=== PATIENT | female | born 1935 | race Caucasian/White ===

== ENCOUNTER 2021-05-22 05:50 | Day surgery (SDC) | payer MEDICARE, OTHER ==
[2021-05-20 11:26] LABS: BASOPHILS 0.5 % (0-2); HEMOGLOBIN 12.7 g/dL (12-16); LYMPHOCYTES 14.7 % (15-50); MCHC 33.4 g/dL (31.0-37.0); MCV 92.8 fL (80.0-100.0); MEAN PLATELET VOLUME 7.1 fL (7.4-10.4); MONOCYTES 9.2 % (2-11); NEUTROPHILS 71.6 % (40-80); PLATELET COUNT 413 10x3/uL (130-400); RBC 4.09 10x6/uL (4.00-5.40); RDW 14.5 % (11.5-14.5); WBC 7.6 10x3/uL (4.8-10.8)
[2021-05-20 11:30] LABS: ANION GAP 11.4 mmol/L (8-16); CALCIUM 9.1 mg/dL (8.5-10.1); CARBON DIOXIDE 31.4 mmol/L (21.0-32.0); CREATININE - SERUM 0.9 mg/dL (0.6-1.3); POTASSIUM - SERUM 3.8 mmol/L (3.5-5.1)
[2021-05-20 11:49] LABS: APTT 31.5 SECONDS (22.8-39.4); INR 1.14 (0.85-1.17); PROTIME 13.5 SECONDS (11.6-15.0)
[~2021-05-22] VITALS: Ht 165.1 cm; Wt 92.5 kg
[~2021-05-22 05:50] MED LIST: BACTRIM 400-801 TAB PO; BAYER CHEWABLE81 MG PO; BETAPACE 80 MG80 MG PO; CETIRIZINE HCL5 M1 PO; ELIQUIS5 MG PO; FUROSEMIDE20 MG PO; HYDROCODON-ACE1 EA10 PO; KEFLEX500 MG PO; LIPITOR10 MG PO; LOVENOX30 MG/0.3 SC; POTASSIUM CHLOR8 ME1 PO; STOOL SOFTENER240 MG PO; VENTOLIN HFA [SP8 GM INH; VITAMIN D31250 MCG PO
[2021-05-22 06:36] VITALS: BP 103/52; Ht 165.1 cm; Wt 92.5 kg
[2021-05-22] MEDS ORDERED: ACETAMINOPHEN500 M1 PO (06:43)
--- NOTE | 2021-05-22 10:15 | NUR ---
UNEVENTFUL RECOVERY. DISCHARGE INSTRUCTIONS GIVEN AND PT VERBALIZED AN UNDERSTANDING. IV D/C'D WITH CANNULA INTACT, PRESSURE HELD AND DRSG PLACED.
--- NOTE | 2021-05-23 08:19 | OP ---
PATIENT NAME: TYLER WELLER MEDICAL RECORD: [id number] :35 LOCATION:[facility] ADMISSION DATE: SURGEON: GERARD EM DO DATE OF OPERATION: 05/22/2021 PROCEDURE PERFORMED: Lipoma excision of the right distal forearm. PREOPERATIVE DIAGNOSIS: Lipoma of the right forearm. POSTOPERATIVE DIAGNOSIS: Lipoma of the right forearm. INDICATIONS: Ms. Weller is an 85-year-old female well known to me, who has had this mass on her forearm for years. It was bothering her and she wanted something done surgically. I told her we could take it out, but there may be a recurrence and likely the lipoma is sent to the lab just to check it. She is okay with that and is aware of the risk of recurrence, infection, bleeding, damage to nerves or vessels, need for further surgery, and continued pain, and signed the consent. SURGEON: Gerard Em DO. DESCRIPTION OF PROCEDURE: The patient was taken to the operative suite, laid in supine position, given 2 grams Ancef preoperatively, sedated and LMA was placed. The right upper extremity was then prepped and draped in sterile fashion. Timeout was performed; everyone was in agreement to the correct side, site, patient and procedure. I then began by making an incision over the lipoma and once I went through the skin, I popped out. It came out very easily. I then picked out the rest of the lipoma. I had exsanguinated the right upper extremity with an Esmarch and tourniquet was inflated to 250 mmHg. It was up for 2 minutes. I then let the tourniquet down and coagulated any bleeding with a pickup and Bovie. I then closed it with 4-0 nylon in a running type stitch. She was then dressed with soft dressing, awakened and taken to recovery in stable condition. BLOOD LOSS: Minimal. COMPLICATIONS: None. TRANSINT:[id number] Voice Confirmation ID: [id number] DOCUMENT ID: [id number] GERARD EM DO at 0819 CC: [id number] DICTATION DATE: 05/22/21 174 DOUBLE CUT OFF SAW OPERATOR: 05/22/21 [id number] [facility] [place] 05/22/[address] [facility] [address] [place] [address]
== END 2021-05-22 09:25 | disposition home or self-care (01) ==
LOC: D.OPS 05:50
PROVIDERS: Anesthesiology; ATTEND Orthopaedic Surgery
DX: D17.21 Benign lipomatous neoplasm of skin and subcutaneous tissue of right arm (principal); M17.11 Unilateral primary osteoarthritis, right knee